=== PATIENT | female | born 1980 | race Caucasian/White ===

== ENCOUNTER 2016-08-30 07:50 | Day surgery (SDC) | payer OTHER ==
[~2016-08-30 07:50] MED LIST: ACETAMINOPHEN 1000MG/100 ML PREMIX IV ONE; FAMOTIDINE 20MG TABLET PO ONE; MECLIZINE 25 MG TABLET PO ONE; METOCLOPRAMIDE 10 MG TABLET PO ONE
[2016-08-30] MEDS ORDERED: HYDROCODONE/APAP 7.5/325MG TABLET PO ONE (13:11)
[2016-08-30] MEDS ORDERED: HYDROMORPHONE HCL 2 MG/ML VIAL IV ONE (13:11)
[2016-08-30] MEDS ORDERED: MIDAZOLAM HCL 2MG/2ML VIAL IV ONE (13:17)
[2016-08-30] MEDS ORDERED: KETOROLAC 30 MG/ML VIAL IVP ONE (13:17)
[2016-08-30] MEDS ORDERED: PROPOFOL 10 MG/ML VIAL IV ONE (13:17)
[2016-08-30] MEDS ORDERED: LIDOCAINE 2% MDV (20MG/ML) 20ML VIAL IV ONE (13:17)
[2016-08-30] MEDS ORDERED: SEVOFLURANE 250 ML INH ONE (13:17)
[2016-08-30] MEDS ORDERED: FENTANYL PF 0.25MG/5ML AMPUL IV ONE (13:17)
--- NOTE | 2016-09-02 18:39 | Operative Note ---
DATE OF SURGERY: 08/30/2016 Surgeon: Дмитрий Beal DO PREOPERATIVE DIAGNOSIS: Patellofemoral instability of the left knee. POSTOPERATIVE DIAGNOSIS: Patellofemoral instability of the left knee. OPERATION: Medial patellofemoral ligament reconstruction of left knee. DESCRIPTION OF PROCEDURE: This 36-year-old female was taken to the operating room and placed in the supine position on the operating room table. General anesthetic was administered. The left lower extremity was prepped with Hibiclens and draped in the usual sterile fashion. The patient's ligament reconstruction used a 4 x 22 mm gracilis graft and a whip stitch was placed in each end of the graft, and the sutures remained intact on the edge of the graft. Subsequently, once the graft had been prepared, an incision was made along the medial aspect of the patella approximately 2 inches in length dissecting down through the skin and subcutaneous tissue. The periosteum and capsule were incised to expose the lateral bone. We stayed extraarticular. Subsequently 2 guidewires were placed, one at the superior pole of the patella approximately 0.5 to 0.75 cm from the tip of the patella and the second 50 mm distal. These guide pins were placed transversely and subsequently overdrilled with the 475 drill. Subsequently, the reamer was passed over the guidewires and the guidewire removed. The graft was attached to a 4.75 SwiveLock anchor and advanced into the patella. The sutures were then removed. The other end of the graft was then passed through the more inferior hold placed in the mid pole of patella. This gave us a loop of graft. We then bluntly dissected down inside of the VMO but still extraarticular and passed a right angle down in this direction and then subsequently an incision was made on the medial aspect in the approximate position of the insertion of the guide pin for the placement of the graft. Subsequently, a suture was passed after grasping the end of the suture with the right angle and then brought out, and this was then later used to pass the graft into its position. We then placed a guidewire in the appropriate position, which was parallel to the posterior aspect of the femoral cortex and at the posterior aspect of the condyle. Subsequently, the image intensifier was used to confirm this position. The guidewire was then driven somewhat cephalad and out the lateral cortex of the femur and out the skin. The Beath needle then, which was used for this purpose, was used to overdrill with the 7 mm reamer and this was taken probably 3/4 of the distance across the femur but the lateral cortex was not violated. This was the removed and the nitinol wire was advanced adjacent to the guide pin. Subsequently, the loop of suture was then used to pass a suture with a loop around our gracilis graft and then this was brought down adjacent to the joint capsule but underneath the VMO and then out the more inferior hole medially. Then the passing suture was removed. The loop of #2 FiberWire, which was around our gracilis graft, was passed through the eye of the Beath needle and then the Beath needle was drawn out the lateral side bringing the sutures out the lateral side, and these were used to place traction on the graft and brought this down into the previously drilled hole, which gave us excellent fixation of the graft of the patella. The patella was then pulled medially so that the lateral cortex was parallel with the lateral femoral condyle, and I felt as though this was a nice tight fit and no instability of the patella seemed to occur. Once this had been secured, we then used the 6 mm screw to pass into the hold in the femur to secure our graft in the hole, and then the nitinol wire was removed and the suture was also removed. The graft was again checked and found to be holding satisfactorily. The wound was then copiously irrigated with lactated Ringer's solution. The suture was then used to close our incision on the medial aspect of the patella and 0 Vicryl was used for this purpose, 2-0 Vicryl used to close the subcutaneous tissue, and 4-0 nylon used to close the skin. The medial incision also closed with a 2-0 Vicryl and the skin with a 4-0 nylon suture. Sterile dressings were applied with a knee immobilizer and the patient taken to the recovery room in satisfactory condition. GROSS PATHOLOGY: This patient had patellofemoral instability with evidence of tear of the medial patellofemoral ligament. This was then reconstructed using the Arthrex MPFL reconstruction technique, and the repair was seen to be satisfactory. JASWANT
== END 2016-08-30 12:25 | disposition home or self-care (01) ==
LOC: SUR 07:50
PROVIDERS: ATTEND Orthopaedic Surgery
DX: M23.52 Chronic instability of knee, left knee (principal)
CPT/HCPCS: 27442; 01400; 76000; J1885; J1170